=== PATIENT | female | born 2000 | race Caucasian/White ===

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

== ENCOUNTER 2021-07-06 15:08 | Emergency (ER) | payer OTHER, SELFPAY ==
[2021-07-06] VITALS (7 sets, daily range): BP systolic 121–146; BP diastolic 67–84; PULSE 63–91; RESP 18; TEMP 36; O2SAT 65–100; BMI 20.1
[2021-07-06 16:36] LABS: Amorphous Sediment Urine 1+; Bacteria Urine Occasional (0-1); Culture Indicated Urine Cult Not Indicated; RBC Urine 0-1/HPF (0-5/HPF); WBC Urine 0-1/HPF (0-5/HPF)
--- NOTE | 2021-07-06 19:26 | DI.CT.S_ITS ---
PROCEDURE: CT ABDOMEN PELVIS WO CON INDICATIONS: Flank pain, blood in urine TECHNIQUE: Axial sections were acquired from the lung bases to the pubic symphysis. Coronal and sagittal reformats were performed. For radiation dose reduction, the following was used: automated exposure control, adjustment of mA and/or kV according to patient size. COMPARISON: None. FINDINGS: Image quality: Excellent. Lung bases: Unremarkable. Heart: No significant findings. URINARY: Right Kidney: Multiple tiny, 2 mm or less nonobstructing stones. No hydronephrosis. Right Ureter: No hydroureter. No ureteral stones. Left Kidney: Multiple nonobstructing 3 mm or less renal stones. Very mild hydronephrosis. Left Ureter: Very mild hydroureter. There is a 2 mm stone obstructing the left ureter at the left ureterovesical junction. Bladder: Bladder is decompressed. No bladder stones. ABDOMEN: Liver: Unremarkable. Gallbladder: Suggestion of possible multiple very subtly identifiable gallstones.. Biliary ducts: Unremarkable. Pancreas: Unremarkable. Spleen: Unremarkable. Adrenal Glands: Unremarkable. Stomach and Bowel: Stomach, small bowel loops, and colon are unremarkable. Peritoneum: No abnormal intraperitoneal fluid. No free air. Ventral Wall: No hernia. Abdominal Nodes: No enlarged retroperitoneal or mesenteric lymph nodes. Vessels: Aorta and inferior vena cava are normal in size. PELVIS: Pelvic Organs: Unremarkable. Pelvic Nodes: Unremarkable. Miscellaneous: No inguinal hernias are seen. Bones: Unremarkable. IMPRESSION: 1. Bilateral nephrolithiasis. Numerous bilateral tiny stones are present. 2. There is a 2 mm stone obstructing the left ureter at the left ureterovesical junction resulting in very minimal left hydronephrosis. 3. Probable gallstones. Dictated by: Dae Kim M.D. on 07/06/2021 at 20:21 Approved by: Dae Kim M.D. on 07/06/2021 at 20:24
--- NOTE | 2021-07-06 19:37 | ED_ITS ---
HPI - Female Genitourinary <Yandel Pace PA-C - Last Filed: 07/19/21 12:04> General Chief complaint: Urogenital-Female Stated complaint: SEVERE BACK PAIN VOMITING Time Seen by Provider: 07/06/21 18:29 Source: patient Mode of arrival: Family Vehicle Limitations: no limitations History of Present Illness HPI Narrative: Patient is a 21-year-old female presenting to the emergency department today for evaluation of low back pain. Patient states that she awoke this morning with left-sided low back pain that she states has begun radiating into the left side of her groin. Additionally, she reports increased urinary urgency and 4 episodes of nonbloody nonbilious vomiting today. She denies fever, chills, chest pain, shortness of breath, cough, abdominal pain, diarrhea, constipation, hematuria, dysuria, or numbness and tingling in the bilateral lower extremities. No other concerns voiced at this time. Related Data Previous Rx's Medication Instructions Recorded famotidine 20 mg tablet (Pepcid) 20 mg PO BEDTIME #30 tab 09/04/20 ondansetron HCl 4 mg tablet 4 mg PO Q6H PRN #30 tab 07/06/21 (Zofran) oxycodone 5 mg tablet 5 mg PO Q8H PRN #6 tab 07/06/21 Allergies Allergy/AdvReac Type Severity Reaction Status Date / Time amoxicillin [AMOXICILLIN] Allergy Mild Hives Verified 07/06/21 15:25 atomoxetine [From STRATTERA] Allergy Mild Hives Verified 07/06/21 15:25 Penicillins Allergy Hives Verified 07/06/21 15:25 Review of Systems <Yandel Pace PA-C - Last Filed: 07/19/21 12:04> Constitutional Constitutional: Denies chills, Denies fatigue, Denies fever(s), Denies frequent falls, Denies lethargy and Denies weakness Eyes Eyes: Denies loss of vision ENT Ears, Nose, Mouth, and Throat: Denies dizziness and Denies neck pain Cardiovascular Cardiovascular: Denies chest pain, Denies irregular heart rhythm, Denies l ightheadedness, Denies palpitations, Denies dyspnea, Denies dyspnea on exertion and Denies orthopnea Respiratory Respiratory: Denies cough, Denies dyspnea, Denies dyspnea on exertion and Denies wheezing Gastrointestinal Gastrointestinal: Denies abdominal pain, Denies change in bowel habits, Denies diarrhea, Denies nausea and Denies vomiting Genitourinary Genitourinary: Denies hematuria, Denies flank pain, Denies urinary incontinence and Denies urinary urgency Musculoskeletal Musculoskeletal: Denies back pain, Denies muscle weakness, Denies neck pain, Denies numbness and Denies tingling Neurologic Neurologic: Denies behavioral changes, Denies confusion, Denies dizziness, Denies frequent falls, Denies loss of vision, Denies numbness, Denies tingling and Denies weakness Psychiatric Psychiatric: Denies behavioral changes and Denies confusion Endocrine Endocrine: Denies fatigue and Denies palpitations Allergic/Immunologic Allergic/Immunologic: Denies wheezing Patient History <Yandel Pace PA-C - Last Filed: 07/19/21 12:04> Medical History Menorrhagia Panic attack alcohol intake frequency: 0-2 drinks per day Substance Use Type: does not use Exam <Yandel Pace PA-C - Last Filed: 07/19/21 12:04> Narrative Exam Narrative: GENERAL: 21 year old patient appears stated age. Well-developed patient, in mild distress. HEAD: Atraumatic. Normocephalic. EYES: Pupils equal round and reactive. Extraocular motions intact. No scleral icterus. No injection or drainage. ENT: Nose without bleeding, purulent drainage. Throat without erythema, tonsillar hypertrophy or exudate. Airway patent. NECK: Trachea midline. Non tender CARDIOVASCULAR: Regular rate and rhythm without murmurs, gallops, or rubs. RESPIRATORY: Clear to auscultation. Breath sounds equal bilaterally. No wheezes, rales, or rhonchi. GASTROINTESTINAL: Abdomen soft, nondistended. Mild tenderness to palpation appreciated over the left lower quadrant. EXTREMITIES: No edema or joint tenderness. BACK: Mild tenderness to palpation appreciated over the left flank with positive CVA tenderness. No tenderness over the L-spine vertebra. NEURO: AOx3. SKIN: No rash or erythema of visible areas Initial Vital Signs Initial Vital Signs: Vital Signs Temperature 96.8 F L 07/06/21 15:19 Pulse Rate 70 07/06/21 15:19 Respiratory Rate 18 07/06/21 15:19 Blood Pressure 131/67 07/06/21 15:19 Pulse Oximetry 99 07/06/21 15:19 <Matt Ledesma DO - Last Filed: 07/20/21 09:56> Initial Vital Signs Initial Vital Signs: Vital Signs Temperature 96.8 F L 07/06/21 15:19 Pulse Rate 70 07/06/21 15:19 Respiratory Rate 18 07/06/21 15:19 Blood Pressure 131/67 07/06/21 15:19 Pulse Oximetry 99 07/06/21 15:19 Course <Yandel Pace PA-C - Last Filed: 07/19/21 12:04> Course Course Narrative: Urine dipstick, urinalysis, CT of abdomen pelvis without contrast ordered. Orders Ordered: Discontinued Medications Ondansetron HCl (Ondansetron 8 Mg Tablet) 8 mg PO NOW ONE Stop: 07/06/21 20:41 Last Admin: 07/06/21 21:01 Dose: Not Given Documented by: TACOS Ondansetron HCl (Ondansetron 4 Mg Odt) 8 mg PO NOW ONE Stop: 07/06/21 20:51 Last Admin: 07/06/21 20:54 Dose: 8 mg Documented by: TACOS Vital Signs Vital signs: Vital Signs - 8 hr 07/06/21 15:19 Temperature 96.8 F L Pulse Rate 70 Respiratory Rate 18 Blood Pressure 131/67 Pulse Oximetry 99 <Matt Ledesma DO - Last Filed: 07/20/21 09:56> Orders Ordered: Discontinued Medications Ondansetron HCl (Ondansetron 8 Mg Tablet) 8 mg PO NOW ONE Stop: 07/06/21 20:41 Last Admin: 07/06/21 21:01 Dose: Not Given Documented by: TACOS Ondansetron HCl (Ondansetron 4 Mg Odt) 8 mg PO NOW ONE Stop: 07/06/21 20:51 Last Admin: 07/06/21 20:54 Dose: 8 mg Documented by: TACOS Vital Signs Vital signs: Vital Signs - 8 hr 07/06/21 15:19 Temperature 96.8 F L Pulse Rate 70 Respiratory Rate 18 Blood Pressure 131/67 Pulse Oximetry 99 MDM - Female Genitourinary <TORRES Jeffers Last Filed: 07/19/21 12:04> Lab Data Labs: Lab Results 07/06/21 Range/Units 16:35 Urine RBC 0-1/hpf (0-5/HPF) Urine WBC 0-1/hpf (0-5/HPF) Amorphous Sediment 1+ Urine Bacteria Occasional (0-1) (None) Ur Culture Indicated? Cult not indicated Point of Care Testing Test Results Negative Urine Dip Bedside Urine Glucose Negative Bedside Urine Bilirubin - Negative Bedside Urine Ketone +/- 5 Urine Specific [place] 1.030 Bedside Urine Occult Blood +/- Bedside Urine pH 6.0 Bedside Urine Protein - Negative Bedside Urine Urobilinogen - Negative Bedside Urine Nitrite - Negative Bedside Urine Leukocytes - Negative Esterase Imaging Data CT scan - abdomen/pelvis: Radiologist's Impression: PROCEDURE:? CT ABDOMEN PELVIS WO CON ? INDICATIONS:? Flank pain, blood in urine ? TECHNIQUE:? Axial sections were acquired from the lung bases to the pubic symphysis.? Coronal and sagittal reformats were performed.? For radiation dose reduction, the following was used: ?automated exposure control, adjustment of mA and/or kV according to patient size.? ? COMPARISON:? None. ? FINDINGS:? Image quality:? Excellent.? ? Lung bases:? Unremarkable.? ? Heart:? No significant findings. ? URINARY: Right Kidney:? Multiple tiny, 2 mm or less nonobstructing stones.? No hydronephrosis.? Right Ureter:? No hydroureter.? No ureteral stones.? ? Left Kidney:? Multiple nonobstructing 3 mm or less renal stones.? Very mild hydronephrosis.? Left Ureter:? Very mild hydroureter.? There is a 2 mm stone obstructing the left ureter at the left ureterovesical junction.? ? Bladder:? Bladder is decompressed.? No bladder stones. ? ABDOMEN: Liver:? Unremarkable.? ? Gallbladder:? Suggestion of possible multiple very subtly identifiable gallston es..? ? Biliary ducts:? Unremarkable.? ? Pancreas:? Unremarkable.? ? Spleen:? Unremarkable.? ? Adrenal Glands:? Unremarkable.? ? ? Stomach and Bowel:? Stomach, small bowel loops, and colon are unremarkable.? Peritoneum:? No abnormal intraperitoneal fluid.? No free air.? ? Ventral Wall: ? No hernia.? Abdominal Nodes:? No enlarged retroperitoneal or mesenteric lymph nodes.? Vessels:? Aorta and inferior vena cava are normal in size.? ? PELVIS: Pelvic Organs:? Unremarkable.? ? Pelvic Nodes: Unremarkable. Miscellaneous: No inguinal hernias are seen. ? ? ? Bones:? Unremarkable. ? IMPRESSION:? ? 1.? Bilateral nephrolithiasis.? Numerous bilateral tiny stones are present. ? 2. There is a 2 mm stone obstructing the left ureter at the left ureterovesical junction resulting in very minimal left hydronephrosis. ? 3. Probable gallstones. ? ? ? Dictated by: Dae Kim M.D. on 07/06/2021 at 20:21 ? ? Approved by: Dae Kim M.D. on 07/06/2021 at 20:24 ? MDM Narrative Medical decision making narrative: To consider nephrolithiasis versus ureterolithiasis versus pyelonephritis versus urinary tract infection versus musculoskeletal back pain. Overall physical examination history reassuring. CT images do show a 2 mm left ureteral stone with very minimal left hydronephrosis. Discussed results of imaging with [place] ent and mother. At this time they feel comfortable being discharged home. Strict return precautions were discussed with patient prior to discharge. <Matt Ledesma, DO - Last Filed: 07/20/21 09:56> Lab Data Labs: Lab Results 07/06/21 Range/Units 16:35 Urine RBC 0-1/hpf (0-5/HPF) Urine WBC 0-1/hpf (0-5/HPF) Amorphous Sediment 1+ Urine Bacteria Occasional (0-1) (None) Ur Culture Indicated? Cult not indicated Point of Care Testing Test Results Negative Urine Dip Bedside Urine Glucose Negative Bedside Urine Bilirubin - Negative Bedside Urine Ketone +/- 5 Urine Specific [place] 1.030 Bedside Urine Occult Blood +/- Bedside Urine pH 6.0 Bedside Urine Protein - Negative Bedside Urine Urobilinogen - Negative Bedside Urine Nitrite - Negative Bedside Urine Leukocytes - Negative Esterase Discharge Plan Departure Patient Disposition: Home Clinical Impression: Ureterolithiasis Instructions: DI for Kidney Stones Activity Restrictions/Additional Instructions: *You have been diagnosed with ureterolithiasis *What to do: *Please continue to take your regular medications as directed. [X] New medication prescriptions sent to your pharmacy: [facility] - Zofran [X] New medication written as a paper prescription: [facility] - Oxycodone [ ] No new medications given *Please follow up with your primary care provider in 2-3 days, call for an appointment. Let them know you were seen in the Emergency Department and that we ask that you be seen in follow up. We will electronically transmit a record of today's note if your PCP is in our system *If you do not have a primary care provider please contact the [facility] Resource line at [phone]. They will ask some questions about your medical history and help get you set up with a doctor in the community. *Return to Emergency Department if you should have any new, worsening or concerning symptoms, such as fever greater than 101 F, shaking chills, worsening pain, persistent vomiting or other bothersome symptoms Prescriptions: New ondansetron HCl [Zofran] 4 mg tablet 4 mg PO Q6H PRN (Reason: nausea and vomiting) Qty: 30 0RF oxycodone 5 mg tablet 5 mg PO Q8H PRN (Reason: pain) Qty: 6 0RF No Action famotidine [Pepcid] 20 mg tablet 20 mg PO BEDTIME Qty: 30 1RF Rx Instructions: Take 1 tab by mouth at bedtime daily for GERD Referrals: Julianne Gonzalez ARNP [Primary Care Provider] - <Matt Ledesma DO - Last Filed: 07/20/21 09:56> Cosign ED Attending Cosignature Attestation: I was immediately available in the department for consultation. This documentation has been reviewed and I agree with assessment and plan. Supervised by Matt Ledesma DO
[2021-07-06] MEDS: ONDANSETRON 4 MG ODT 8 MG PO (20:54)
== END 2021-07-06 21:01 | disposition home or self-care (01) ==
PROVIDERS: Emergency Medicine; Emergency Provider Physician Assistant; PCP Nurse Practitioner
DX: N13.2 Hydronephrosis with renal and ureteral calculous obstruction (principal)
CPT/HCPCS: 74176; 81003; 81015; 81025; 99284

== ENCOUNTER → 2021-12-24 11:52 | Outpatient (CLI) | payer OTHER, SELFPAY ==
--- NOTE | 2021-12-24 12:07 | DI.CT.S_ITS ---
PROCEDURE: CT ABDOMEN PELVIS WO CON INDICATIONS: Personal history of urinary calculi TECHNIQUE: Axial sections were acquired from the lung bases to the pubic symphysis. Coronal and sagittal reformats were performed. For radiation dose reduction, the following was used: automated exposure control, adjustment of mA and/or kV according to patient size. COMPARISON: [facility], CT, CT ABDOMEN PELVIS WO CON, 07/06/2021, 19:37. FINDINGS: Image quality: Excellent. Lung bases: Unremarkable. Heart: No significant findings. URINARY: Right Kidney: Normal size. There are multiple 1-2 mm nonobstructing right renal calculi. No hydronephrosis. Right Ureter: No hydroureter or ureterolithiasis. Left Kidney: Normal size. There are multiple 2-3 mm nonobstructing left renal calculi. No hydronephrosis. Left Ureter: The calcification visualized at the left ureterovesicular junction on the study dated July 06, 2021 is no longer visualized. No new ureterolithiasis. Bladder: Normal wall thickness. No stones. ABDOMEN: Liver: Unremarkable. Gallbladder: Contracted. Biliary ducts: Unremarkable. Pancreas: Unremarkable. Spleen: Unremarkable. Adrenal Glands: Unremarkable. Stomach and Bowel: Stomach, small bowel loops, and colon are unremarkable. Macro normal appendix Peritoneum: No abnormal intraperitoneal fluid. No free air. Ventral Wall: No hernia. Abdominal Nodes: No enlarged retroperitoneal or mesenteric lymph nodes. Vessels: Aorta and inferior vena cava are normal in size. 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 PELVIS: Pelvic Organs: Unremarkable. Pelvic Nodes: Unremarkable. Miscellaneous: No inguinal hernias are seen. Bones: Unremarkable. IMPRESSION: 1. Bilateral nonobstructing nephrolithiasis. 2. Previously visualized left UVJ stone is no longer present and is presumably passed. 3. Incidentally noted duplicated IVC. Dictated by: Yesenia Perea M.D. on 12/24/2021 at 16:38 Approved by: Yesenia Perea M.D. on 12/24/2021 at 16:42
== END ==
PROVIDERS: PCP Nurse Practitioner; Referring Provider Family Medicine; Visit Provider Family Medicine
DX: N20.0 Calculus of kidney (principal); Z87.442 Personal history of urinary calculi
CPT/HCPCS: 74176

== ENCOUNTER → 2023-11-27 07:02 | Outpatient (CLI) | payer OTHER, SELFPAY ==
--- NOTE | 2023-11-27 07:04 | DI.CT.S_ITS ---
PROCEDURE: CT KIDNEY URETER BLADDER (KUB) INDICATIONS: RECURRENT BACKPAIN,KIDNEY STONES TECHNIQUE: Axial sections were acquired from the lung bases to the pubic symphysis. Coronal and sagittal reformats were performed. For radiation dose reduction, the following was used: automated exposure control, adjustment of mA and/or kV according to patient size. COMPARISON: [facility], CT, CT ABDOMEN PELVIS WO CON, 12/24/2021, 12:08. FINDINGS: Image quality: Diagnostic. Lower Chest: No significant findings. URINARY: Right Kidney: Nonobstructing calculi are present within the right renal pelvis. The largest measures approximately 4 mm in diameter. No hydronephrosis. Right Ureter: No hydroureter. Left Kidney: A nonobstructing 4 mm calculus is present within the left lower pole. No hydronephrosis. Left Ureter: No hydroureter. Bladder: Normal wall thickness. No stones. ABDOMEN: Liver: No contour-deforming solid mass. Gallbladder: No radiopaque gallstones or wall thickening. Biliary ducts: No biliary dilation. Pancreas: No ductal dilation. Spleen: Size is within normal limits. Adrenal Glands: No adrenal nodules. Stomach and Bowel: Normal colonic caliber, without significant wall thickening. The appendix is thin walled and gas filled. Peritoneum: No abnormal intraperitoneal fluid. No free air. Ventral Wall: No hernia. Abdominal Nodes: No enlarged retroperitoneal or mesenteric lymph nodes. Vessels: Aorta and inferior vena cava are normal in size. 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 PELVIS: Pelvic Organs: Unremarkable. Pelvic Nodes: Unremarkable. Miscellaneous: No inguinal hernias are seen. Bones: Unremarkable. Superior L2 endplate Schmorl's node is unchanged from the study dated December 24, 2021. IMPRESSION: 1. No hydronephrosis, nephrolithiasis, hydroureter, or ureterolithiasis. 2. No acute intra-abdominal findings. Normal appendix. Dictated by: Yesenia Perea M.D. on 11/27/2023 at 9:11 Approved by: Yesenia Perea M.D. on 11/27/2023 at 9:15
== END ==
PROVIDERS: PCP Nurse Practitioner; Referring Provider Family Medicine; Visit Provider Family Medicine
DX: N20.0 Calculus of kidney (principal); M54.50 Low back pain, unspecified; F40.231 Fear of injections and transfusions
CPT/HCPCS: 74176

== ENCOUNTER 2024-04-05 05:28 | Emergency (ER) | payer OTHER, SELFPAY ==
[2024-04-05 05:39] VITALS: BP 135/87; PULSE 73; RESP 17; TEMP 36.2; O2SAT 100; BMI 23.4
--- NOTE | 2024-04-05 05:39 | ED_ITS ---
HPI - Extremity Problem General Chief complaint: Extremity Problem,Nontraumatic Stated complaint: rt hip and back pain Time Seen by Provider: 04/05/24 05:30 History of Present Illness HPI Narrative: 23yoF presents by private vehicle from home for throbbing/aching R groin pain since 0430 this morning. Took 1/2 of a 5mg percocet tablet wtih some relief of pain. No other medications taken prior to arrival. States that she is concerned that she may have pinched something. Denies accident or injury. Currently on menstrual cycle. 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 Related Data Previous Rx's Medication Instructions Recorded famotidine 20 mg tablet (Pepcid) 20 mg PO BEDTIME #30 tabs 09/04/20 ondansetron HCl 4 mg tablet 4 mg PO Q6H PRN nausea and 07/06/21 (Zofran) vomiting #30 tabs oxycodone 5 mg tablet 5 mg PO Q8H PRN pain #6 tabs 07/06/21 Allergies Allergy/AdvReac Type Severity Reaction Status Date / Time amoxicillin [AMOXICILLIN] Allergy Mild Hives Verified 07/06/21 15:25 atomoxetine [From STRATTERA] Allergy Mild Hives Verified 07/06/21 15:25 Penicillins Allergy Hives Verified 07/06/21 15:25 Patient History Medical History Menorrhagia Panic attack Social History Smoking Status: Never smoker second hand exposure: No alcohol intake: never substance use type: does not use Smoking Status: Never smoker alcohol intake frequency: 0-2 drinks per day Substance Use Type: does not use Exam Initial Vital Signs Initial Vital Signs: Vital Signs Temperature 97.2 F L 04/05/24 05:39 Pulse Rate 73 04/05/24 05:39 Respiratory Rate 17 04/05/24 05:39 Blood Pressure 135/87 04/05/24 05:39 Pulse Oximetry 100 04/05/24 05:39 Oxygen Delivery Method Room Air 04/05/24 05:39 Const: Awake, alert, no acute distress, nontoxic appearing GI: Soft, nontender, nondistended, no hernias MSK hip: Atraumatic, no bony tenderness, pain along R adductor muscle Skin: Warm, Dry, intact, no rashes Neuro: AO x3, CN II-XII grossly intact, moves all extremities Course Orders Ordered: ED Orders 04/05/24 05:44 XR hip w pel if done RT 2V Stat 04/05/24 05:50 Urine Microscopic Stat Discontinued Medications Ketorolac Tromethamine (Ketorolac 30 Mg/Ml Vial) 30 mg IM NOW ONE Stop: 04/05/24 05:40 Last Admin: 04/05/24 05:53 Dose: Not Given Documented By: KELLY Vital Signs Vital signs: Vital Signs - 8 hr 04/05/24 05:39 Temperature 97.2 F L Pulse Rate 73 Respiratory Rate 17 Blood Pressure 135/87 Pulse Oximetry 100 Oxygen Delivery Method Room Air MDM - Extremity (Nontraumatic) Lab Data Labs: Lab Results 04/05/24 Range/Units 05:50 Urine RBC 30-100/hpf H (0-5/HPF) Urine WBC 1-5/hpf (0-5/HPF) Ur Squamous Epith Cells 1-5 /hpf (0-5/HPF) Urine Bacteria Moderate (10-30) H (None) Granular Casts 0-1/lpf (None) Urine Mucus 2+ H (Negative) Ur Culture Indicated? Cult not indicated Vol Urine Centrifuged 10ml (spun) Point of Care Testing Test Results Negative Urine Dip Bedside Urine Glucose Negative Bedside Urine Bilirubin - Negative Bedside Urine Ketone - Negative Urine Specific [place] 1.03 Bedside Urine Occult Blood +++ Bedside Urine pH 6 Bedside Urine Protein +/- 15 Bedside Urine Urobilinogen - Negative Bedside Urine Nitrite - Negative Bedside Urine Leukocytes - Negative Esterase Imaging Data Extremity x-ray #1: Radiologist's Impression: Preliminary review: No acute findings MDM Narrative Medical decision making narrative: Atraumatic hip pain. Pain more located along inner R thigh. Patient states mother was concerned that sympoms may be related to another kidney stone vs appendicitis. Patient has no abdominal tenderness on exam whatsoever. Patient's pain is outside bony pelvis and reproducible with movement. Low suspicion for intra-abdominal pathology at this time. More likely musculoskeletal. Patient declined toradol injection. X-ray imaging negative for acute findings. Repeat exam patient's abdomen continues to be soft with no reproducible tenderness to palpation. Pain is along inner thigh. Patient counseled to take Tylenol and ibuprofen as needed for pain. To apply ice as needed for swelling or discomfort, and to do gentle stretching exercises for pain control. Discharge Plan Departure Patient Disposition: Home Clinical Impression: Rt groin pain Instructions: DI for Groin Strain Activity Restrictions/Additional Instructions: Your exam today is most consistent with muscle strain in your groin/inner thigh. Your x-rays today were normal. Your urine did not show any signs of infection. Take 1000 mg of Tylenol and 400 mg of ibuprofen every 4-6 hours as needed for pain or discomfort. Take no more than 4000 mg of Tylenol daily. You may also apply heat or ice to the painful area as desired for comfort. Gentle activity such as walking can help to keep your muscles loose. I also recommend gentle stretching exercises to help relieve pain. I anticipate that you will feel better in the next several days. Prescriptions: No Action famotidine [Pepcid] 20 mg tablet 20 mg PO BEDTIME Qty: 30 1RF Rx Instructions: Take 1 tab by mouth at bedtime daily for GERD ondansetron HCl [Zofran] 4 mg tablet 4 mg PO Q6H PRN (Reason: nausea and vomiting) Qty: 30 0RF oxycodone 5 mg tablet 5 mg PO Q8H PRN (Reason: pain) Qty: 6 0RF Referrals: Julianne Gonzalez ARNP [Primary Care Provider] - Stand Alone Forms: Patient Portal/API
--- NOTE | 2024-04-05 05:44 | DI.RAD.S_ITS ---
PROCEDURE: XR HIP W PEL IF DONE RT 2V INDICATIONS: R HIP PAIN, NO TRAUMA TECHNIQUE: AP pelvis with lateral view(s) of the right hip(s). COMPARISON: None. FINDINGS: Bones: No fractures or dislocations. Pelvic ring appears intact. No suspicious bony lesions. Soft tissues: The visualized bowel gas pattern is normal. No suspicious soft tissue calcifications. IMPRESSION: No acute bony abnormality. If symptoms persist with conservative management, consider cross-sectional imaging such as CT or MRI. Approved by: Lala Santoyo M.D.,Ph.D. on 04/05/2024 at 8:35
--- NOTE | 2024-04-05 05:53 | PC.NURSE ---
pt offered medication for pain, declined stating I don't do needles, Dr Turcios informed and new orders noted
[2024-04-05 06:28] LABS: RBC Urine 30-100/HPF (0-5/HPF); Urine Volume 10mL (spun); WBC Urine 1-5/HPF (0-5/HPF)
[2024-04-05 06:29] LABS: Bacteria Urine Moderate (10-30); Mucus Urine 2+ (Negative); Squamous Epithelial Cell Urine 1-5 /HPF (0-5/HPF)
[2024-04-05 06:30] LABS: Granular Casts Urine 0-1/LPF
[2024-04-05 06:34] LABS: Culture Indicated Urine Cult Not Indicated
== END 2024-04-05 06:51 | disposition home or self-care (01) ==
PROVIDERS: Emergency Provider Emergency Medicine; PCP Nurse Practitioner
DX: R10.31 Right lower quadrant pain (principal); M25.551 Pain in right hip
CPT/HCPCS: 73502; 81003; 81015; 81025; 99283; J1885

== ENCOUNTER → 2024-10-27 12:04 | Outpatient (ROUT) | payer OTHER, SELFPAY ==
[2024-10-27 12:15] LABS: Add Manual Diff / Slide Review NO; Basophils Absolute Auto 100 /uL (0-100); Basophils Percent Auto 0.8 % (0-2); Eosinophils Absolute Auto 100 /uL (0-450); Eosinophils Percent Auto 1.2 % (2-4); Hematocrit 37.2 % (36-46); Hemoglobin 12.3 g/dL (12.0-16.0); Lymphocytes Absolute Auto 1900 /uL (1100-4500); Lymphocytes Percent Auto 27.8 % (25-40); Mean Corpuscular HGB Conc 33.1 % (30-36); Mean Corpuscular Hemoglobin 27.5 PG (26-34); Monocytes Absolute Auto 600 /uL (0-900); Neutrophils Absolute Auto 4300 /uL (1500-7000); Neutrophils Percent Auto 62.2 % (50-75); Platelet Count 274 X10^3/uL (150-400); Red Blood Cell Count 4.48 X10^6/uL (4.0-5.2); Red Cell Distribution Width 14.3 % (11.6-14.8); White Blood Cell Count 6.9 X10^3/uL (4.5-11.0)
[2024-10-27 12:29] LABS: Alanine Aminotransferase 23 IU/L (<35); Albumin 4.6 g/dL (3.5-5.0); Albumin Globulin Ratio 1.5 (1.0-2.8); Alkaline Phosphatase 113 U/L (38-126); Aspartate Aminotransferase 31 IU/L (14-36); BUN Creatinine Ratio 23.1 (6-22); Bilirubin Total 0.5 mg/dL (0.2-1.3); Blood Urea Nitrogen 15 mg/dL (7-17); Calcium 9.3 mg/dL (8.4-10.2); Carbon Dioxide 24 mmol/L (22-32); Chloride 103 mmol/L (98-107); Cholesterol 213 mg/dL (140-199); Estimated Glomerular Filt Rate > 60 mL/min (>60); Globulin 3.1 g/dL (1.7-4.1); Glucose 77 mg/dL (70-100); HDL Cholesterol 58 mg/dL (40-60); HEMOLYSIS < 15 (0-50); LDL Cholesterol Calculated 137 mg/dL (<100); Potassium 4.1 mmol/L (3.4-5.1); Sodium 140 mmol/L (137-145); Total Protein 7.7 g/dL (6.3-8.2); Triglycerides 89 mg/dL (35-150)
[2024-10-27 12:31] LABS: Hemoglobin A1C% w Est Avg Glu 4.7 % (4.0-6.0)
[2024-10-27 12:59] LABS: Thyroid Stimulating Hormone 3.55 uIU/mL (0.47-4.68)
== END ==
LOC: LAB 12:05
PROVIDERS: PCP Nurse Practitioner; Visit Provider Family Medicine
DX: Z00.00 Encounter for general adult medical examination without abnormal findings (principal); Z87.442 Personal history of urinary calculi; Z13.1 Encounter for screening for diabetes mellitus
CPT/HCPCS: 80053; 80061; 83036; 84443; 84550; 85025